=== PATIENT | male | born 1945 | race Caucasian/White ===

== ENCOUNTER 2021-07-07 09:46 | Emergency (ER) | payer OTHER ==
[2021-07-07] MEDS ORDERED: Ketorolac 30 MG/ML SDV ONE (10:16)
[2021-07-07] MEDS ORDERED: Cyclobenzaprine 10 MG Tab PO PRN (10:27)
[2021-07-07] MEDS ORDERED: Ketorolac 30 MG/ML SDV IM ONE (10:28)
[2021-07-07] MEDS ORDERED: Cyclobenzaprine 10 MG Tab ONE (10:28)
[2021-07-07] MEDS ORDERED: traMADol 50 MG Tab ONE (11:00)
--- NOTE | 2021-07-08 12:27 | CT ---
Date of Service: 07/07/21 Clinical Data: back pain UNENHANCED ABDOMEN AND PELVIC ct: No priors. There are mild atelectatic of the dependent portion of both lower lungs. The lung bases are otherwise clear. The heart size is normal. There is a small hiatal hernia. The unenhanced liver appears normal. No focal hepatic lesions. The gallbladder appears normal. No calcified gallstones. The spleen appears normal. The pancreas appears normal. The right and left adrenals appear normal. There is a 1 cm low-density lesion projecting from the upper pole of the right kidney consistent with appearance of a benign cyst. The right and left kidneys otherwise appear normal. No nephrocalcinosis or nephrolithiasis. No hydronephrosis or hydroureter. There is a small amount of fluid within the bladder. It appears normal. The prostate is grossly enlarged. There are calcifications within the prostate consistent with chronic prostatitis. The appendix is not dilated. No evidence of appendicitis. There is diverticulosis of the transverse, descending, and sigmoid colon. There is minimal fat stranding adjacent to the proximal sigmoid colon consistent with mild or early diverticulitis. No evidence of diverticular abscess. No free air. No free fluid. No dilated loops of bowel. No adenopathy. No aortic aneurysm. There is a small fat-containing umbilical hernia. There is degenerative disk disease throughout the lower thoracic and lumbar spine. There is a 2.2 cm oval-shaped subcutaneous nodule in the left back just to the left of the midline. It has a thin soft tissue rim. It is consistent in appearance with a sebaceous cyst. There is another 1 cm subcutaneous nodule in the midline of the back with similar appearance most likely representing a sebaceous cyst. No other significant findings. [id number] [facility]
--- NOTE | 2021-07-10 19:35 | ER ---
REASON FOR EMERGENCY ROOM VISIT: Back pain. HISTORY: This 75-year-old [place]. He suffered a sudden onset of severe low back pain, which he rated as a 10/10. He was having a very difficult time moving or ambulating around and was brought into the emergency room on a wheelchair. The patient states that the pain just came on suddenly. He was not doing anything strenuous at that time. He has had back trouble in the past, but nothing nearly to this extent. He does not have any numbness or weakness in his legs. The pain does not radiate down his legs at all in any way. PAST MEDICAL HISTORY: Significant for, 1. Back pain. 2. Hypertension. 3. DVT. 4. Ventral hernia. 5. History rotator cuff syndrome. MEDICATIONS: Reviewed, see EMR. ALLERGIES: NONE TO MEDICATIONS. REVIEW OF SYSTEMS: Pertinent positives and negatives as listed in the HPI. PHYSICAL EXAMINATION: GENERAL: He is uncomfortable. VITAL SIGNS: He is afebrile. Blood pressure is 185/88, pulse of 72, respirations 16, O2 sats 97%. HEENT: Unremarkable. NECK: Supple. No adenopathy. No thyromegaly. CHEST: Clear to auscultation. CARDIAC: Regular rate without murmur. ABDOMEN: Obese. He has an umbilical hernia. It is soft, nontender. The umbilical hernia is easily reducible and nontender. MUSCULOSKELETAL: He has no CVA tenderness, but he does have quite a bit of spasm on his lower back, but no tenderness on percussion over spinous processes. EXTREMITIES: Deep tendon reflexes are normal and symmetrical. Negative straight leg raising. Sensation is normal to crude touch. EMERGENCY ROOM COURSE: We performed a CT scan of his abdomen and pelvis to rule out any intraabdominal pathology as well as ureterolithiasis. Scan did not demonstrate any stones. He had no other significant intraabdominal findings. He did receive 1 dose of Toradol 30 mg IM. His back pain improved considerably. IMPRESSION: Low back pain without evidence of radiculopathy. PLAN: He was he was instructed regarding stretching exercises, NSAIDs, activity, and the natural history of low back pain under these circumstances. He understands and agrees. All questions were answered. ENOC/RACHELE /[id number]
== END 2021-07-07 11:37 | disposition home or self-care (01) ==
LOC: LB.ED 09:46
DX: M54.5 Low back pain (principal); I10 Essential (primary) hypertension; Z86.718 Personal history of other venous thrombosis and embolism
CPT/HCPCS: 74176; 81001; 96372; 99284-25; A9270-GY; J1885